=== PATIENT | male | born 1985 | race Caucasian/White ===

== ENCOUNTER 2019-01-30 09:01 | Emergency (ER) | payer BC ==
[~2019-01-30] VITALS: Ht 180.3 cm; Wt 100.0 kg
[2019-01-30] MEDS ORDERED: HYDR-3965 PO (09:24)
[2019-01-30] MEDS ORDERED: CYCL-1 PO (09:24)
[2019-01-30] MEDS ORDERED: cyclobenzaprine 10mg tablet PO ONE (09:30)
[2019-01-30] MEDS ORDERED: morphine 4 MG/ML inj SYRINge IM ONE (09:30)
[2019-01-30] MEDS ORDERED: ketorolac trometh. 30mg/ml inj. IM ONE (09:30)
[2019-01-30 10:12] VITALS: BP 115/70
--- NOTE | 2019-01-30 10:12 | NUR ---
PT FEELING BETTER AT REST 05/02. AT BEDSIDE FOR RIDE HOME.
== END 2019-01-30 10:14 | disposition home or self-care (01) ==
LOC: ER 09:02
DX: S39.012A Strain of muscle, fascia and tendon of lower back, initial encounter (principal); M54.41 Lumbago with sciatica, right side; F10.99 Alcohol use, unspecified with unspecified alcohol-induced disorder; Z79.899 Other long term (current) drug therapy; X58.XXXA Exposure to other specified factors, initial encounter; Y93.89 Activity, other specified; Y92.89 Other specified places as the place of occurrence of the external cause; Y99.8 Other external cause status; Y90.9 Presence of alcohol in blood, level not specified
CPT/HCPCS: 96372; 99283; J1885; J2270